=== PATIENT | male | born 1980 | race Caucasian/White ===

== ENCOUNTER 2018-08-22 09:54 | Day surgery (SDC) | payer BC ==
[2019-01-23] MEDS ORDERED: NEOMYC/POLYMYX/BACIT 30 GM OINT (10:06)
[2019-01-23] MEDS ORDERED: LIDOCAINE 1% (MDV) 20 ML INJ (10:24)
[2019-01-23] MEDS ORDERED: MIDAZOLAM 1 MG/ML 2 ML INJ (10:24)
[2019-01-23] MEDS ORDERED: ROCURONIUM 50 MG INJ (10:24)
[2019-01-23] MEDS ORDERED: PROPOFOL 20 ML (10:24)
[2019-01-23] MEDS ORDERED: FENTAnyl 50 MCG/ML VIAL (10:24)
[2019-01-23] MEDS ORDERED: CEFAZOLIN 1 GM INJ (10:35)
[2019-01-23] MEDS ORDERED: ONDANSETRON 4 MG INJ (10:37)
[2019-01-23] MEDS ORDERED: DEXAMETHASONE 4 MG/ML 5 ML INJ (10:38)
[2019-01-23] MEDS: COCAINE 4% 4 ML TOP (11:01)
[2019-01-23] MEDS: LIDOCAINE 1%/EPI (1:100,000) (MDV) 20 ML (11:01)
[2019-01-23] MEDS: HYDROmorphONE 1 MG/5 ML IV SYRINGE IV ×2 (13:01→13:09)
== END 2019-01-23 14:25 | disposition home or self-care (01) ==
LOC: SDS 09:54
DX: J34.3 Hypertrophy of nasal turbinates (principal); J32.8 Other chronic sinusitis; J34.2 Deviated nasal septum
CPT/HCPCS: 30140; 71045; 88300; 88304